=== PATIENT | male | born 1940 | race Caucasian/White ===

== ENCOUNTER 2017-08-22 10:54 | Inpatient (IN) | payer MEDICARE, BC ==
[~2017-08-22] VITALS: Ht 170.2 cm; Wt 91.0 kg
[~2017-08-22 10:54] MED LIST: ALBUTEIN5 %; SPIRIVA HANDIHALER; ZITHROMAX250 MG PO
--- NOTE | 2017-08-22 11:05 | NUR ---
PATIENT AMBULATED TO ROOM WITH STEADY GAIT AND PHYSICIAN NOTIFIED OF PATIENT STATUS
--- NOTE | 2017-08-22 11:35 | NUR ---
IV ACCESS OBTINED ON 2nd ATTEMPT PT TOLERATED WELL, GOOD ASPIRATE NOTED,
--- NOTE | 2017-08-22 11:45 | NUR ---
PT RESTING OFFERS NO NEW COMPLAINTS, NO SOB OR DISTRESS NOTED.
[2017-08-22 12:07] LABS: HEMATOCRIT 46.2 % (39.0-50.0); IMMATURE GRANULOCYTES 0.6 % (0.0-1.0); MEAN CORPUSCULAR HGB 30.5 pG CALC (26.0-32.0); MEAN CORPUSCULAR HGB CONC 34.6 g/L CALC (32.0-36.0); NEUT# 13.64 thou/uL (1.82-7.42); RED BLOOD COUNT 5.25 mill/uL (4.70-6.10); RED CELL DISTRI WIDTH 13.6 % (11.5-15.5)
--- NOTE | 2017-08-22 12:15 | NUR ---
TOLERAATED PORTABLE CXR W/O INCIDENT
--- NOTE | 2017-08-22 12:15 | NUR ---
PT TOLERATED MEDICATIONS W/O INCIDENT, IV ABT CONTINUES PT VERBALIZES NO COMPLAINTS.
[2017-08-22 12:20] LABS: ALBUMIN 4.1 g/dL (3.2-5.0); ALKALINE PHOSPHATASE 53 u/l (38-126); ANION GAP 15 (6-22 (CALC)); BILIRUBIN, TOTAL 1.8 mg/dL (0.0-1.4); BUN 10 mg/dL (8-23); BUN/CREATININE RATIO 14 (12-20 (CALC)); CALCIUM 9.3 mg/dL (8.4-10.2); CARBON DIOXIDE 24 mmol/l (22-30); CHLORIDE 98 mmol/l (95-108); CREATININE 0.7 mg/dL (0.7-1.3); GFR > 60 ML/MIN (>=60 (CALC)); GFR FOR AFR.AMER. > 60 ML/MIN (>=60 (CALC)); GLUCOSE 108 mg/dL (82-115); POTASSIUM 4.3 mmol/l (3.5-5.1); SGOT/AST 26 u/l (19-48); SGPT/ALT 37 u/l (11-66); SODIUM 132 mmol/l (137-146); TOTAL PROTEIN 6.9 g/dL (6.3-8.2)
[2017-08-22 12:30] LABS: MYOGLOBIN 49 ng/mL (0 - 121)
--- NOTE | 2017-08-22 12:52 | NUR ---
TOLERATED DUO NEB WITHOUT INCIDENT, RESTING ON STRETCHER, CALL LOPEZ WITHIN REACH.
--- NOTE | 2017-08-22 13:55 | NUR ---
REVIEWED RADIOLOGY EXAMS WITH PATIENT AND SPOKE WITH HIM REGARDING ADMISSION
[2017-08-22 17:00] VITALS: BP 137/82
--- NOTE | 2017-08-22 17:03 | NUR ---
RT AT BEDSIDE FOR NEB TREATMENT
--- NOTE | 2017-08-22 18:03 | NUR ---
SPUTUM SPECIMEN SENT EARLIER, THICK VIRK SPUTUM NOTED, PT OFFERS NO NE WCOMPLAINTS RESTING COMFORTABLY ON STRETCHER. CALL LOPEZ WITHIN REACH
--- NOTE | 2017-08-22 18:11 | NUR ---
PT SITTING UP ON EDGE PF STRETCHER, VISITOR AT BEDSIDE, CALL LOPEZ WITHIN REACH
[2017-08-22 18:40] VITALS: BP 130/77
--- NOTE | 2017-08-22 18:42 | NUR ---
PT ADMITTED TO MED SURG VIA WC, ALL BELONGINGS SENT WITH PATIENT
--- NOTE | 2017-08-22 18:42 | NUR ---
PT ADMITTED TO MED SURG RM 260 VIA , TELE BOX [id number] ON PT, PT ALERT AND ORIENTED, STOOD AND TRANSFERRED TO BED, LUNGS COARSE BUT NO SHORTNESS OF BREATH OR DISTRESS NOTED, FRIEND WITH PT, REPORT GIVEN TO DENEEN ALVAREZ TAKING OVER CARE OF PT.
--- NOTE | 2017-08-22 19:00 | NUR ---
RECEIVED CHANGE OF SHIFT REPORT FROM ANTONIO MARIE. PATIENT LYING IN BED AND APPEARS NOT TO BE IN ANY APPARENT ACUTE DISTRESS OR DISCOMFORT. PATIENT DENIES PAIN. VISITOR AT BEDSIDE. WILL CONTINUE TO MONITOR.
[2017-08-22] MEDS ORDERED: OMEPRAZOLE20 M2 PO (20:08)
[2017-08-22] MEDS ORDERED: TGT ASPIRIN81 MG PO (20:10)
[2017-08-22] MEDS ORDERED: SPIRIVA HANDIH18 MCG IN (20:13)
[2017-08-22] MEDS ORDERED: MELATONIN10 M1 PO (20:16)
--- NOTE | 2017-08-23 | NUR ---
PATIENT RESTING QUIETLY WITH EYES CLOSE AND APPEARS TO BE ASLEEP. RESPIRATION EVEN AND UNLABORED. NO APPARENT ACUTE DISTRESS NOTED.
--- NOTE | 2017-08-23 04:00 | NUR ---
PATIENT'S AWAKE AND LYING IN BED. DENIES ANY PAIN OR DISCOMFORT. NO APPARENT ACUTE CHANGES NOTED IN PT'S CONDITION.
[2017-08-23 05:12] VITALS: BP 110/63
[2017-08-23 06:04] LABS: HEMOGLOBIN 14.7 g/dl (14.0-18.0); MEAN CELL VOLUME 87.3 fL CALC (80.0-100.0); MEAN CORPUSCULAR HGB 30.6 pG CALC (26.0-32.0); RED BLOOD COUNT 4.81 mill/uL (4.70-6.10); RED CELL DISTRI WIDTH 13.5 % (11.5-15.5)
[2017-08-23 06:26] LABS: ANION GAP 13 (6-22 (CALC)); BUN 10 mg/dL (8-23); BUN/CREATININE RATIO 15 (12-20 (CALC)); CALCIUM 9.3 mg/dL (8.4-10.2); CARBON DIOXIDE 24 mmol/l (22-30); CHLORIDE 102 mmol/l (95-108); CREATININE 0.7 mg/dL (0.7-1.3); GFR > 60 ML/MIN (>=60 (CALC)); GFR FOR AFR.AMER. > 60 ML/MIN (>=60 (CALC)); GLUCOSE 122 mg/dL (82-115); POTASSIUM 4.2 mmol/l (3.5-5.1); SODIUM 134 mmol/l (137-146)
--- NOTE | 2017-08-23 07:00 | NUR ---
REPORT RECIEVED FROM ANTONIO BROTHERS. PT AWAKE ON ENTRY. NO COMPLAINTS OF PAIN. RESP EVEN AND UNLABORED. IV SITE HAS NO REDNESS OR INFLAMATION NOTED. TELE IN PLACE. SAFETY PRECAUTIONS REINFORCED. CALL LIGHT WITHIN REACH. WILL CONTINUE TO MONITOR.
[2017-08-23 09:16] VITALS: BP 106/63
[2017-08-23 11:11] VITALS: BP 110/71
[2017-08-23 15:36] VITALS: BP 131/79
--- NOTE | 2017-08-23 15:52 | NUR ---
PT RESTING IN BED WATCHING TV. NO COMPLAINTS OF PAIN FROM PT. TELE IN PLACE. WILL CONTINUE TO MONITOR. CALL LIGHT WITHIN REACH.
[2017-08-23 18:45] VITALS: BP 124/74
--- NOTE | 2017-08-23 19:00 | NUR ---
REPORT GIVEN TO ANTONIO BROTHERS. NO ACUTE CHANGES IN PT CONDITION. CALL LIGHT WITHIN REACH.
--- NOTE | 2017-08-23 19:00 | NUR ---
RECEIVED CHANGE OF SHIFT REPORT FROM ELVIA UNGER. PATIENT SITTING UP IN BED AND APPEARS NOT TO BE IN ANY APPARENT ACUTE DISTRESS OR DISCOMFORT. DENIES PAIN. WILL CONTINUE TO MONITOR.
[2017-08-23 23:55] VITALS: BP 105/63
--- NOTE | 2017-08-24 | NUR ---
PATIENT RESTING QUIETLY AT THIS TIME.
[2017-08-24 04:15] VITALS: BP 133/83
--- NOTE | 2017-08-24 06:15 | NUR ---
NO APPARENT ACUTE CHANGE NOTED IN PATIENT'S CONDITION.
[2017-08-24 06:36] LABS: HEMATOCRIT 41.9 % (39.0-50.0); HEMOGLOBIN 14.3 g/dl (14.0-18.0); IMMATURE GRANULOCYTES 0.5 % (0.0-1.0); MEAN CELL VOLUME 88.6 fL CALC (80.0-100.0); MEAN CORPUSCULAR HGB 30.2 pG CALC (26.0-32.0); MEAN CORPUSCULAR HGB CONC 34.1 g/L CALC (32.0-36.0); NEUT# 9.67 thou/uL (1.82-7.42); RED BLOOD COUNT 4.73 mill/uL (4.70-6.10)
[2017-08-24 06:58] LABS: ANION GAP 14 (6-22 (CALC)); BUN 14 mg/dL (8-23); BUN/CREATININE RATIO 17 (12-20 (CALC)); CALCIUM 9.1 mg/dL (8.4-10.2); CARBON DIOXIDE 25 mmol/l (22-30); CHLORIDE 104 mmol/l (95-108); CREATININE 0.8 mg/dL (0.7-1.3); GFR > 60 ML/MIN (>=60 (CALC)); GFR FOR AFR.AMER. > 60 ML/MIN (>=60 (CALC)); GLUCOSE 87 mg/dL (82-115); MAGNESIUM 2.4 mg/dL (1.6-2.3); POTASSIUM 4.5 mmol/l (3.5-5.1); SODIUM 138 mmol/l (137-146)
--- NOTE | 2017-08-24 07:08 | NUR ---
REPORT RECEIVED FROM ANTONIO BROTHERS. PT IN SHOWER AT THIS TIME. WILL CONTINUE TO MONITOR.
[2017-08-24 07:48] VITALS: BP 123/79
--- NOTE | 2017-08-24 08:24 | NUR ---
INCETIVE SPIROMETERM PROVIDED TO PT. PT INSTRUCTED ON USE ADN INDICATION. 1500ML INCENTIVE VOLUME ACHIEVED GOAL SET FOR 2000ML. PT STATES UNDERSTANDING OF INFORMATION.
[2017-08-24 08:30] LABS: URINE BILIRUBIN - DIPSTICK NEGATIVE (NEGATIVE); URINE BLOOD DIPSTICK NEGATIVE (NEGATIVE); URINE CLARITY CLEAR; URINE COLOR YELLOW; URINE GLUCOSE - DIPSTICK NEGATIVE (NEGATIVE); URINE KETONE NEGATIVE (NEGATIVE); URINE LEUK ESTERASE NEGATIVE (NEGATIVE); URINE NITRITE - DIPSTICK NEGATIVE (Negative); URINE PROTEIN - DIPSTICK NEGATIVE (NEG-TRACE); URINE UROBILINOGEN - DIPSTICK 0.2 E.U./dL (0.2)
[2017-08-24] MEDS ORDERED: LEVAQUIN750 MG PO (09:11)
--- NOTE | 2017-08-24 10:03 | NUR ---
AMBULATING O2 SAT TRIAL AT THIS TIME. PT WALKED FOR 6 MINUTES IN HALLWAYS,MAINTAINED O2 SAT OF 93%. HR ELEVATED UP TO 160 BPM WITH ACTIVITY. SHONNA POLANCO NOTIFIED.
[2017-08-24 11:14] VITALS: BP 109/72
--- NOTE | 2017-08-24 12:11 | NUR ---
Discharge instructions given. Patient verbalizes understanding of same. Discharged in stable condition via Wheelchair to Home with friend. All belongings sent with pt.
== END 2017-08-24 12:34 | disposition home or self-care (01) | DRG 190 ==
LOC: ED 10:54 → ED-I 13:51 → ED 15:30 → ED-I 15:31 → MS2 15:31
PROVIDERS: Emergency Medicine; Nurse Practitioner Family; ADMIT Internal Medicine; ATTEND Internal Medicine
DX: J44.0 Chronic obstructive pulmonary disease with (acute) lower respiratory infection (principal); J15.5 Pneumonia due to Escherichia coli; J44.1 Chronic obstructive pulmonary disease with (acute) exacerbation; E87.1 Hypo-osmolality and hyponatremia; K59.00 Constipation, unspecified; Z87.891 Personal history of nicotine dependence
CPT/HCPCS: J1650; Q9967

== ENCOUNTER 2020-11-08 14:05 | Inpatient (IN) | payer MEDICARE ==
[2020-11-08] VITALS (7 sets, daily range): BP systolic 85–119; BP diastolic 46–84
[~2020-11-08] VITALS: Ht 170.2 cm; Wt 96.0 kg
[~2020-11-08 14:05] MED LIST changes: +LEVAQUIN750 MG PO; +MELATONIN10 M1 PO; +OMEPRAZOLE20 M2 PO; +SPIRIVA HANDIH18 MCG IN; +TGT ASPIRIN81 MG PO
[2020-11-08 14:37] LABS: HEMATOCRIT 44.4 % (39.0-50.0); HEMOGLOBIN 15.1 g/dl (14.0-18.0); IMMATURE GRANULOCYTES 0.4 % (0.0-5.0); MEAN CELL VOLUME 90.1 fL CALC (80.0-100.0); MEAN CORPUSCULAR HGB 30.6 pG CALC (26.0-32.0); NEUT# 5.79 thou/uL (1.82-7.42); RED BLOOD COUNT 4.93 mill/uL (4.70-6.10); RED CELL DISTRI WIDTH 13.2 % (11.5-15.5)
[2020-11-08 14:54] LABS: ALBUMIN 4.2 g/dL (3.2-5.0); ANION GAP 11 (6-22 (CALC)); BUN 20 mg/dL (8-23); BUN/CREATININE RATIO 24 (12-20 (CALC)); CARBON DIOXIDE 24 mmol/l (22-30); CHLORIDE 103 mmol/l (95-108); CREATININE 0.8 mg/dL (0.7-1.3); GFR > 60 ML/MIN (>=60 (CALC)); GFR FOR AFR.AMER. > 60 ML/MIN (>=60 (CALC)); LIPASE 65 u/l (23-300); MAGNESIUM 2.1 mg/dL (1.6-2.3); SGOT/AST 38 u/l (19-48); SODIUM 134 mmol/l (137-146); TOTAL PROTEIN 7.6 g/dL (6.3-8.2)
[2020-11-08 15:03] LABS: ALKALINE PHOSPHATASE 81 u/l (38-126)
[2020-11-08] MEDS ORDERED: ATORVASTATIN CA40 MG PO (15:51)
[2020-11-08] MEDS ORDERED: ELIQUIS5 MG PO (15:51)
[2020-11-08] MEDS ORDERED: DILTIAZEM HCL120 M1 PO (15:51)
[2020-11-08] MEDS ORDERED: MONTELUKAST SOD10 MG PO (15:51)
[2020-11-08] MEDS ORDERED: PULMICORT90 MCG/ACT IN (15:53)
[2020-11-08] MEDS ORDERED: BEVESPI AEROSPH1 AER IN (15:53)
[2020-11-09] VITALS (17 sets, daily range): BP systolic 101–195; BP diastolic 55–81
[2020-11-09 05:35] LABS: HEMATOCRIT 39.5 % (39.0-50.0); HEMOGLOBIN 13.3 g/dl (14.0-18.0); IMMATURE GRANULOCYTES 0.5 % (0.0-5.0); MEAN CELL VOLUME 90.4 fL CALC (80.0-100.0); MEAN CORPUSCULAR HGB 30.4 pG CALC (26.0-32.0); MEAN CORPUSCULAR HGB CONC 33.7 g/dL CAL (32.0-36.0); NEUT# 7.55 thou/uL (1.82-7.42); RED BLOOD COUNT 4.37 mill/uL (4.70-6.10); RED CELL DISTRI WIDTH 13.1 % (11.5-15.5)
[2020-11-09 06:02] LABS: ANION GAP 10 (6-22 (CALC)); BUN 16 mg/dL (8-23); BUN/CREATININE RATIO 22 (12-20 (CALC)); CARBON DIOXIDE 24 mmol/l (22-30); CHLORIDE 105 mmol/l (95-108); CREATININE 0.7 mg/dL (0.7-1.3); GFR > 60 ML/MIN (>=60 (CALC)); GFR FOR AFR.AMER. > 60 ML/MIN (>=60 (CALC)); POTASSIUM 4.2 mmol/l (3.5-5.1); SODIUM 135 mmol/l (137-146)
[2020-11-10] VITALS (7 sets, daily range): BP systolic 90–134; BP diastolic 57–80
[2020-11-10 04:38] LABS: HEMATOCRIT 37.4 % (39.0-50.0); HEMOGLOBIN 12.5 g/dl (14.0-18.0); IMMATURE GRANULOCYTES 0.6 % (0.0-5.0); MEAN CELL VOLUME 90.3 fL CALC (80.0-100.0); MEAN CORPUSCULAR HGB 30.2 pG CALC (26.0-32.0); MEAN CORPUSCULAR HGB CONC 33.4 g/dL CAL (32.0-36.0); NEUT# 14.21 thou/uL (1.82-7.42); RED BLOOD COUNT 4.14 mill/uL (4.70-6.10); RED CELL DISTRI WIDTH 13.2 % (11.5-15.5)
[2020-11-10 04:53] LABS: ANION GAP 10 (6-22 (CALC)); BUN 20 mg/dL (8-23); BUN/CREATININE RATIO 27 (12-20 (CALC)); CARBON DIOXIDE 24 mmol/l (22-30); CHLORIDE 108 mmol/l (95-108); CREATININE 0.7 mg/dL (0.7-1.3); GFR > 60 ML/MIN (>=60 (CALC)); GFR FOR AFR.AMER. > 60 ML/MIN (>=60 (CALC)); POTASSIUM 4.4 mmol/l (3.5-5.1); SODIUM 137 mmol/l (137-146)
[2020-11-10] MEDS ORDERED: MEDDOSEPAK PO (09:21)
[2020-11-10] MEDS ORDERED: ZITHROMAX500 MG PO (09:21)
== END 2020-11-10 10:15 | disposition home or self-care (01) | DRG 310 ==
LOC: ED 14:05 → ED-I 14:50 → ED 14:50 → ED-I 17:16 → ED 17:28 → ICU 17:29
PROVIDERS: ADMIT Internal Medicine; ATTEND Internal Medicine
DX: I48.91 Unspecified atrial fibrillation (principal); J43.9 Emphysema, unspecified; E78.5 Hyperlipidemia, unspecified; M35.3 Polymyalgia rheumatica; Z79.01 Long term (current) use of anticoagulants; Z87.891 Personal history of nicotine dependence; Z86.16 Personal history of COVID-19; Z20.822 Contact with and (suspected) exposure to COVID-19
CPT/HCPCS: Q9967; S0164

== ENCOUNTER 2020-11-30 20:17 | Observation (INO) | payer MEDICARE ==
[~2020-11-30] VITALS: Ht 165.1 cm; Wt 97.0 kg
[~2020-11-30 20:17] MED LIST changes: +ATORVASTATIN CA40 MG PO; +BEVESPI AEROSPH1 AER IN; +DILTIAZEM HCL120 M1 PO; +ELIQUIS5 MG PO; +MEDDOSEPAK PO; +MONTELUKAST SOD10 MG PO; +PULMICORT90 MCG/ACT IN; +ZITHROMAX500 MG PO
--- NOTE | 2020-11-30 20:19 | NUR ---
AMBULATED TO ROOM WITH STEADY GAIT.
[2020-11-30 20:47] LABS: IMMATURE GRANULOCYTES 0.2 % (0.0-5.0); MEAN CELL VOLUME 89.2 fL CALC (80.0-100.0); MEAN CORPUSCULAR HGB 30.5 pG CALC (26.0-32.0); MEAN CORPUSCULAR HGB CONC 34.2 g/dL CAL (32.0-36.0); NEUT# 4.62 thou/uL (1.82-7.42); RED BLOOD COUNT 5.02 mill/uL (4.70-6.10); RED CELL DISTRI WIDTH 13.4 % (11.5-15.5)
[2020-11-30 20:49] LABS: HEMATOCRIT 44.8 % (39.0-50.0); HEMOGLOBIN 15.3 g/dl (14.0-18.0)
[2020-11-30 21:01] LABS: ALBUMIN 4.4 g/dL (3.2-5.0); ALKALINE PHOSPHATASE 61 u/l (38-126); ANION GAP 13 (6-22 (CALC)); BUN 17 mg/dL (8-23); BUN/CREATININE RATIO 22 (12-20 (CALC)); CARBON DIOXIDE 23 mmol/l (22-30); CHLORIDE 102 mmol/l (95-108); CREATININE 0.8 mg/dL (0.7-1.3); GFR > 60 ML/MIN (>=60 (CALC)); GFR FOR AFR.AMER. > 60 ML/MIN (>=60 (CALC)); POTASSIUM 4.4 mmol/l (3.5-5.1); SGOT/AST 36 u/l (19-48); SODIUM 134 mmol/l (137-146); TOTAL PROTEIN 7.7 g/dL (6.3-8.2)
--- NOTE | 2020-11-30 21:10 | NUR ---
DISCUSSED ADMISSION AND PLANS.
[2020-11-30] MEDS ORDERED: 24HR ALLERGY R180 MG PO (21:11)
[2020-11-30] MEDS ORDERED: ANORO ELLIPTA 61 AER IN (21:11)
[2020-11-30] MEDS ORDERED: MULTIVITAMIN1 TA1 PO (21:12)
[2020-11-30 21:13] LABS: MYOGLOBIN 59 ng/mL (0 - 121)
[2020-11-30] MEDS ORDERED: MIRALAX17 GM PO (21:13)
[2020-11-30 21:16] LABS: URINE BILIRUBIN - DIPSTICK NEGATIVE (NEGATIVE); URINE BLOOD DIPSTICK NEGATIVE (NEGATIVE); URINE COLOR YELLOW; URINE GLUCOSE - DIPSTICK NEGATIVE (NEGATIVE); URINE KETONE NEGATIVE (NEGATIVE); URINE LEUK ESTERASE NEGATIVE (NEGATIVE); URINE NITRITE - DIPSTICK NEGATIVE (Negative); URINE PROTEIN - DIPSTICK NEGATIVE (NEG-TRACE); URINE UROBILINOGEN - DIPSTICK 0.2 E.U./dL (0.2)
--- NOTE | 2020-11-30 22:00 | NUR ---
RESTING COMFORTABLY AWAITING DISPO.
--- NOTE | 2020-11-30 22:55 | NUR ---
Admission Note Report Given to: ANTONIO MORGAN Transported by: Wheelchair X Stretcher Transported with: X Nurse Transporter X Patent IV O2 X Shore Working Supervisor Location: ICU X [facility]
[2020-11-30 23:05] VITALS: BP 109/71
--- NOTE | 2020-11-30 23:20 | NUR ---
PHYSICAL ASSESMENT COMPLETE. PT CURRENTLY DENIES PAIN OR DISCOMFORT. SCHEDULED MEDICATIONS AND PRN MEDICATION ADMINISTERED, SEE E-MAR. PT DENIES ANY NEEDS AT THIS TIME. PLAN OF CARE REVIEWED, PT DENIES QUESTIONS, VERBALIZES UNDERSTANDING. ITEMS WITHIN REACH, BED LOCKED IN LOW POSITION W/ BEDRAILS UP X2. CALL LOPEZ WITHIN REACH, AGREES TO CALL PRN.
[2020-12-01 04:00] VITALS: BP 113/78
--- NOTE | 2020-12-01 04:12 | NUR ---
PT RESTING IN BED, NO SIGNS OF DISTRESS NOTED, RESP EVEN AND UNLABORED. PT VOICES NO NEEDS OR COMPLAINTS AT THIS TIME. CALL LIGHT IN REACH, CONTINUE TO MONITOR.
[2020-12-01 07:55] VITALS: BP 112/75
--- NOTE | 2020-12-01 07:55 | NUR ---
ASSESSMENT IS COMPLETED: IV SITE IS FREE FROM REDNESS OR EDEMA. HR IS REG,PULSES ARE STRONG X4, ABD IS SOFT WITH ACTIVE BS., BREATH SOUNDS ARE CLEAR AND DIMNISHED. TELE MONITOR IN PLACE. NO C/O PAIN OR DISTRESS NOTED. CONTINUE TO OSBEVE AND MONITOR.
[2020-12-01 10:30] VITALS: BP 139/85
[2020-12-01] MEDS ORDERED: LOPRESSOR25 MG PO (11:58)
[2020-12-01] MEDS ORDERED: MUCINEX600 MG PO (12:03)
[2020-12-01] MEDS ORDERED: AMOX/K CLAV875 M1 PO (12:04)
--- NOTE | 2020-12-01 12:45 | NUR ---
PT IS SITTING ON THE SIDE OF THE BED. WANTING TO SHOWER PRIOR TO LEAVING. IV SITE AND TELE OFF PT. CONTINUE TO OBSERVE AND MONITOR. DISCHAARGE INSTRUCTIONS GIVEN AND VERBALIZED UNDERSTANDING.
--- NOTE | 2020-12-01 13:55 | NUR ---
Discharge instructions given. Patient verbalizes understanding of same. Discharged in stable condition via Wheelchair to Home with family. All belongings sent with pt.
--- NOTE | 2020-12-01 13:59 | NUR ---
PT TRANSPORTED TO ER ENTER[facility] FOR DISCHARGE.
== END 2020-12-01 13:55 | disposition home or self-care (01) ==
LOC: ED 20:17 → ED-I 21:13 → ED 21:13 → ED-I 22:05 → ED 22:33 → MS2 22:33
PROVIDERS: Emergency Medicine; ADMIT Internal Medicine; ATTEND Internal Medicine
DX: I48.20 Chronic atrial fibrillation, unspecified (principal); U07.1 COVID-19; J12.82 Pneumonia due to coronavirus disease 2019; J44.0 Chronic obstructive pulmonary disease with (acute) lower respiratory infection; M35.3 Polymyalgia rheumatica; E78.5 Hyperlipidemia, unspecified; Z87.891 Personal history of nicotine dependence; Z79.01 Long term (current) use of anticoagulants
CPT/HCPCS: J7626

== ENCOUNTER 2021-08-25 09:52 | Emergency (ER) | payer MEDICARE ==
[~2021-08-25] VITALS: Ht 165.1 cm; Wt 92.3 kg
[~2021-08-25 09:52] MED LIST changes: +24HR ALLERGY R180 MG PO; +AMOX/K CLAV875 M1 PO; +ANORO ELLIPTA 61 AER IN; +LOPRESSOR25 MG PO; +MIRALAX17 GM PO; +MUCINEX600 MG PO; +MULTIVITAMIN1 TA1 PO
[2021-08-25 10:34] LABS: HEMATOCRIT 39.8 % (39.0-50.0); HEMOGLOBIN 13.4 g/dl (14.0-18.0); IMMATURE GRANULOCYTES 0.3 % (0.0-5.0); MEAN CELL VOLUME 89.6 fL CALC (80.0-100.0); MEAN CORPUSCULAR HGB 30.2 pG CALC (26.0-32.0); MEAN CORPUSCULAR HGB CONC 33.7 g/dL CAL (32.0-36.0); NEUT# 5.78 thou/uL (1.82-7.42); RED BLOOD COUNT 4.44 mill/uL (4.70-6.10); RED CELL DISTRI WIDTH 13.4 % (11.5-15.5)
[2021-08-25 10:45] LABS: ALKALINE PHOSPHATASE 85 u/l (38-126); ANION GAP 9 (6-22 (CALC)); BUN 11 mg/dL (8-23); BUN/CREATININE RATIO 17 (12-20 (CALC)); CARBON DIOXIDE 29 mmol/l (22-30); CHLORIDE 98 mmol/l (95-108); CREATININE 0.6 mg/dL (0.7-1.3); GFR > 60 ML/MIN (>=60 (CALC)); GFR FOR AFR.AMER. > 60 ML/MIN (>=60 (CALC)); POTASSIUM 4.3 mmol/l (3.5-5.1); SGOT/AST 32 u/l (19-48); SODIUM 132 mmol/l (137-146); TOTAL PROTEIN 7.1 g/dL (6.3-8.2)
[2021-08-25] MEDS ORDERED: LISINOPRIL2.5 MG PO (10:45)
[2021-08-25] MEDS ORDERED: STIOLTO RESPIMA1 AER IN (10:46)
[2021-08-25] MEDS ORDERED: PROAIR HFA108 MCG/AC IN (10:49)
[2021-08-25] MEDS ORDERED: FLECAINIDE50 MG PO (10:51)
[2021-08-25] MEDS ORDERED: KAPSPARGO SPRIN25 MG PO (10:52)
[2021-08-25] MEDS ORDERED: FUROSEMIDE20 MG PO (10:52)
[2021-08-25] MEDS ORDERED: MUCINEX600 MG PO (10:55)
[2021-08-25] MEDS ORDERED: ZPAK PO (12:15)
[2021-08-25] MEDS ORDERED: CHERATUSSIN PO (12:15)
[2021-08-25 12:22] VITALS: BP 145/79
== END 2021-08-25 12:33 | disposition home or self-care (01) ==
LOC: ED 09:52
PROVIDERS: Family Medicine
DX: J06.9 Acute upper respiratory infection, unspecified (principal); R10.13 Epigastric pain; R10.11 Right upper quadrant pain; J44.9 Chronic obstructive pulmonary disease, unspecified; I48.91 Unspecified atrial fibrillation; M35.3 Polymyalgia rheumatica; Z86.16 Personal history of COVID-19

== ENCOUNTER 2022-08-20 07:02 | Emergency (ER) | payer MEDICARE ==
[~2022-08-20] VITALS: Ht 165.1 cm; Wt 96.8 kg
[2022-08-20] VITALS (10 sets, daily range): BP systolic 114–137; BP diastolic 62–81
[~2022-08-20 07:02] MED LIST changes: +CHERATUSSIN PO; +FLECAINIDE50 MG PO; +FUROSEMIDE20 MG PO; +KAPSPARGO SPRIN25 MG PO; +LISINOPRIL2.5 MG PO; +PROAIR HFA108 MCG/AC IN; +STIOLTO RESPIMA1 AER IN; +ZPAK PO
[2022-08-20] MEDS ORDERED: PULMICORT FLE180 MCG PO (07:40)
[2022-08-20 07:42] LABS: HEMATOCRIT 43.4 % (39.0-50.0); HEMOGLOBIN 14.8 g/dl (14.0-18.0); IMMATURE GRANULOCYTES 0.3 % (0.0-5.0); MEAN CELL VOLUME 89.5 fL CALC (80.0-100.0); MEAN CORPUSCULAR HGB 30.5 pG CALC (26.0-32.0); MEAN CORPUSCULAR HGB CONC 34.1 g/dL CAL (32.0-36.0); NEUT# 15.27 thou/uL (1.82-7.42); RED BLOOD COUNT 4.85 mill/uL (4.70-6.10); RED CELL DISTRI WIDTH 13.1 % (11.5-15.5)
[2022-08-20 08:05] LABS: ALBUMIN 4.2 g/dL (3.2-5.0); ALKALINE PHOSPHATASE 82 u/l (38-126); BUN 15 mg/dL (8-23); BUN/CREATININE RATIO 18 (12-20 (CALC)); CARBON DIOXIDE 24 mmol/l (22-30); CHLORIDE 99 mmol/l (95-108); CREATININE 0.9 mg/dL (0.7-1.3); GFR FOR AFR.AMER. > 60 ML/MIN (>=60 (CALC)); GFR OTHER RACES > 60 ML/MIN (>=60 (CALC)); SGOT/AST 34 u/l (19-48); SODIUM 131 mmol/l (137-146); TOTAL PROTEIN 7.5 g/dL (6.3-8.2)
[2022-08-20 08:09] LABS: ANION GAP 12 (6-22 (CALC)); BILIRUBIN, TOTAL 2.5 mg/dL (0.0-1.4)
[2022-08-20] MEDS ORDERED: PREDNISONE50 MG PO (08:20)
[2022-08-20] MEDS ORDERED: ALBUTEROL SUL0.083 % IN (08:20)
[2022-08-20] MEDS ORDERED: TESSALON PERLE100 MG PO (08:20)
[2022-08-20] MEDS ORDERED: LEVAQUIN750 M1 PO (08:20)
== END 2022-08-20 09:25 | disposition home or self-care (01) ==
LOC: ED 07:02
PROVIDERS: Emergency Medicine
DX: J44.1 Chronic obstructive pulmonary disease with (acute) exacerbation (principal); J18.9 Pneumonia, unspecified organism; J44.0 Chronic obstructive pulmonary disease with (acute) lower respiratory infection; I10 Essential (primary) hypertension; I48.91 Unspecified atrial fibrillation; M35.3 Polymyalgia rheumatica; Z86.16 Personal history of COVID-19; Z20.822 Contact with and (suspected) exposure to COVID-19